=== PATIENT | female | born 1950 | race African-American/Black ===

== ENCOUNTER 2017-06-22 00:51 | Inpatient (IN) ==
[2017-06-22] MEDS ORDERED: ONDANSETRON ODT 4 MG TABLET PO STA (01:13)
[2017-06-22] MEDS ORDERED: SODIUM CHLORIDE 0.9% 1,000 ML IV STA ×2 (01:13→02:55)
[2017-06-22] MEDS ORDERED: ACETAMINOPHEN 500 MG TABLET PO STA (01:14)
[2017-06-22] MEDS ORDERED: ONDANSETRON 4 MG/2 ML VIAL ONE (02:11)
[2017-06-22] MEDS ORDERED: ACETAMINOPHEN 500 MG TABLET ONE (02:11)
[2017-06-22 02:17] LABS: Hematocrit 20.9 VOL% (35.7-47.0); Hemoglobin 7.4 GM/DL (12.0-16.0); Immature Granulocytes % 6.5 %; Immature Granulocytes Absolute 0.12 #; Lymphocytes # 0.2 10*3/uL (1.4-4.0); Lymphocytes % 12.4 % (21.3-54.2); Mean Corpuscular HGB Conc 35.4 GM/DL (32-36); Mean Corpuscular Hemoglobin 31 PG (27-34); Mean Corpuscular Volume 88.6 FL (87-102); Mean Platelet Volume 10.9 FL (9.6-12.0); Monocytes # 0.1 10*3/uL (0.11-0.8); Monocytes % 4.8 % (1.7-12.7); Neutrophils # 1.4 10*3/uL (1.4-7.4); Neutrophils % 76.3 % (38.7-73.9); Platelet Count 123 T/CUMM (130-400); Red Blood Count 2.36 MC/CUMM (3.8-5.5); Red Cell Distribution Width 13.9 % (9.3-17.3); White Blood Count 1.9 T/CUMM (4-12)
[2017-06-22 02:31] LABS: Alanine Aminotransferase 45 U/L (13-56); Albumin 2.4 G/DL (3.4-5.0); Alkaline Phosphatase 524 U/L (45-117); Aspartate Amino Transferase 63 U/L (0-37); Bilirubin,Total < 0.39 MG/DL (0.2-1.0); Blood Urea Nitrogen 16 MG/DL (7-18); Calcium 9.1 MG/DL (8.5-10.1); Glucose 128 MG/DL (74-106); Osmolality,Calculated 279.5 MOS/KG (273-304); Potassium 3.8 MMOL/L (3.5-5.1); Sodium 139 MMOL/L (136-145); Total Protein 7.5 G/DL (6.4-8.3)
[2017-06-22 03:35] LABS: Band Neutrophils 3 % (0-10); Lymphocytes 10 % (20-55); Segmented Neutrophils 83 % (50-85); Total Cells Counted 99
[2017-06-22 03:36] LABS: Hypochromasia 1+; Platelet Estimate Adequate; Target Cells Few
[2017-06-22 03:37] LABS: Microcytosis Slight
[2017-06-22] MEDS ORDERED: PROMETHAZINE INJ 12.5 MG in SODIUM CHLORIDE 0.9% 50 ML IV STA (04:58)
[2017-06-22] MEDS ORDERED: MAGNESIUM HYDROXIDE SUSP 30 ML UDCUP PO PRN (05:03)
[2017-06-22] MEDS ORDERED: BENZTROPINE 2 MG/2 ML AMP IV PRN (05:03)
[2017-06-22] MEDS ORDERED: ALPRAZolam 0.25 MG TABLET PO PRN (05:03)
[2017-06-22] MEDS ORDERED: traMADol 50 MG TABLET PO PRN (05:03)
[2017-06-22] MEDS ORDERED: LACTULOSE 20 GM/30 ML UDCUP PO PRN (05:03)
[2017-06-22] MEDS ORDERED: guaiFENesin 200 MG/10 ML UDCUP PO PRN (05:03)
[2017-06-22] MEDS ORDERED: diphenhydrAMINE CAP 25 MG CAPSULE PO PRN (05:03)
[2017-06-22] MEDS ORDERED: SODIUM CHLORIDE 0.9% 1,000 ML IV PRN ×2 (05:03→22:51)
[2017-06-22] MEDS ORDERED: chlorproMAZINE INJ 50 MG in SODIUM CHLORIDE 0.9% 100 ML IV PRN (05:03)
[2017-06-22] MEDS ORDERED: chlorproMAZINE INJ 25 MG in SODIUM CHLORIDE 0.9% 100 ML IV PRN (05:03)
[2017-06-22] MEDS ORDERED: MYLANTA/LIDO VISC 2:1 300 ML BOTTLE SWISH/SWAL PRN (05:03)
[2017-06-22] MEDS ORDERED: chlorproMAZINE 25 MG TABLET PO PRN (05:03)
[2017-06-22] MEDS ORDERED: LOPERAMIDE 2 MG CAPSULE PO PRN ×2 (05:03)
[2017-06-22] MEDS ORDERED: MYLANTA/LIDO VISC 2:1 300 ML BOTTLE SWISH/SPIT PRN (05:03)
[2017-06-22] MEDS ORDERED: ACETAMINOPHEN 325 MG TABLET PO PRN (05:03)
[2017-06-22] MEDS ORDERED: PROMETHAZINE 25 MG/1 ML VIAL ONE (05:12)
[2017-06-22] MEDS ORDERED: MORPHINE 2 MG/1 ML SYRINGE IV STA (05:50)
[2017-06-22] MEDS ORDERED: MORPHINE 10 MG/1 ML VIAL ONE (05:51)
[2017-06-22] MEDS ORDERED: ZALEPLON 5 MG CAPSULE PO PRN (08:29)
[2017-06-22] MEDS ORDERED: PANTOPRAZOLE 40 MG TABLET PO SCH (09:00)
[2017-06-22] MEDS ORDERED: LINACLOTIDE 145 MCG CAPSULE PO SCH (09:00)
[2017-06-22] MEDS ORDERED: LOSARTAN 50 MG TABLET PO SCH (09:00)
[2017-06-22 09:19] LABS: Basophils % 0.2 % (0.0-0.8); Hematocrit 20.2 VOL% (35.7-47.0); Hemoglobin 7.1 GM/DL (12.0-16.0); Immature Granulocytes % 1.2 %; Immature Granulocytes Absolute 0.06 #; Lymphocytes # 0.4 10*3/uL (1.4-4.0); Lymphocytes % 8.3 % (21.3-54.2); Mean Corpuscular HGB Conc 35.1 GM/DL (32-36); Mean Corpuscular Hemoglobin 31 PG (27-34); Mean Platelet Volume 10.5 FL (9.6-12.0); Monocytes # 0.4 10*3/uL (0.11-0.8); Monocytes % 7.1 % (1.7-12.7); Neutrophils # 4.2 10*3/uL (1.4-7.4); Neutrophils % 83.2 % (38.7-73.9); Red Blood Count 2.27 MC/CUMM (3.8-5.5); Red Cell Distribution Width 13.9 % (9.3-17.3)
[2017-06-22 09:26] LABS: Platelet Count 94 T/CUMM (130-400); White Blood Count 5.1 T/CUMM (4-12)
[2017-06-22] MEDS: oxyCODONE/ACETAMINOPHEN 5-325 MG TABLET PO SCH ×4 (09:48→20:08)
[2017-06-22] MEDS: SODIUM CHLORIDE 0.9% 1,000 ML IV SCH ×2 (09:48→20:16)
[2017-06-22] MEDS: LACTULOSE 20 GM/30 ML UDCUP PO SCH ×2 (09:48→13:19)
[2017-06-22] MEDS: MEGESTROL 40 MG TABLET PO SCH ×4 (09:49→20:08)
[2017-06-22 09:52] LABS: Band Neutrophils 18 % (0-10); Lymphocytes 9 % (20-55); Segmented Neutrophils 69 % (50-85); Total Cells Counted 100
[2017-06-22 09:53] LABS: Giant Platelets Few; Hypochromasia 1+; Microcytosis Slight; Ovalocytes Slight; Platelet Estimate Decreased
[2017-06-22 09:54] LABS: Alanine Aminotransferase 52 U/L (13-56); Albumin 2.1 G/DL (3.4-5.0); Alkaline Phosphatase 418 U/L (45-117); Aspartate Amino Transferase 74 U/L (0-37); Bilirubin,Total < 0.39 MG/DL (0.2-1.0); Blood Urea Nitrogen 19 MG/DL (7-18); Calcium 8.6 MG/DL (8.5-10.1); Glucose 138 MG/DL (74-106); Osmolality,Calculated 284.3 MOS/KG (273-304); Potassium 3.7 MMOL/L (3.5-5.1); Sodium 141 MMOL/L (136-145); Total Protein 6.6 G/DL (6.4-8.3)
[2017-06-22] MEDS: ONDANSETRON 4 MG/2 ML VIAL IV PRN ×2 (12:11→18:01)
[2017-06-22] MEDS: PROMETHAZINE INJ 25 MG in SODIUM CHLORIDE 0.9% 50 ML IV PRN (13:33)
[2017-06-22] MEDS: LEVOFLOXACIN INJ 500 MG in PREMIX 1 EACH IV SCH (17:26)
[2017-06-22] MEDS ORDERED: CITALOPRAM 40 MG TABLET PO SCH (21:00)
[2017-06-22] MEDS ORDERED: PANTOPRAZOLE 40 MG VIAL IV ONE (22:26)
[2017-06-22 23:24] LABS: Basophils % 0.5 % (0.0-0.8); Hematocrit 28.7 VOL% (35.7-47.0); Immature Granulocytes % 0.5 %; Immature Granulocytes Absolute 0.02 #; Lymphocytes # 0.5 10*3/uL (1.4-4.0); Lymphocytes % 11.4 % (21.3-54.2); Mean Corpuscular HGB Conc 34.1 GM/DL (32-36); Mean Corpuscular Hemoglobin 30 PG (27-34); Mean Corpuscular Volume 88.3 FL (87-102); Mean Platelet Volume 10.6 FL (9.6-12.0); Monocytes # 0.4 10*3/uL (0.11-0.8); Monocytes % 10.2 % (1.7-12.7); Neutrophils # 3.2 10*3/uL (1.4-7.4); Neutrophils % 77.4 % (38.7-73.9); Platelet Count 101 T/CUMM (130-400); Red Blood Count 3.25 MC/CUMM (3.8-5.5); White Blood Count 4.1 T/CUMM (4-12)
[2017-06-22 23:27] LABS: Hemoglobin 9.8 GM/DL (12.0-16.0)
[2017-06-23 00:27] LABS: Partial Thromboplastin Time 29.1 SECS (0-40)
[2017-06-23] MEDS: oxyCODONE/ACETAMINOPHEN 5-325 MG TABLET PO SCH ×7 (01:31→22:06)
[2017-06-23 02:53] LABS: Anisocytosis 1+; Band Neutrophils 61 % (0-10); Lymphocytes 10 % (20-55); Poikilocytosis 1+; Segmented Neutrophils 24 % (50-85); Target Cells 1+; Total Cells Counted 100
[2017-06-23] MEDS: SODIUM CHLORIDE 0.9% 1,000 ML IV SCH (04:13)
[2017-06-23] MEDS: PROMETHAZINE INJ 25 MG in SODIUM CHLORIDE 0.9% 50 ML IV PRN (04:13)
[2017-06-23 05:30] LABS: Basophils % 0.5 % (0.0-0.8); Hematocrit 29.1 VOL% (35.7-47.0); Hemoglobin 9.8 GM/DL (12.0-16.0); Immature Granulocytes % 0.5 %; Immature Granulocytes Absolute 0.02 #; Lymphocytes # 0.5 10*3/uL (1.4-4.0); Lymphocytes % 11.5 % (21.3-54.2); Mean Corpuscular HGB Conc 33.7 GM/DL (32-36); Mean Corpuscular Hemoglobin 30 PG (27-34); Mean Corpuscular Volume 88.2 FL (87-102); Mean Platelet Volume 10.7 FL (9.6-12.0); Monocytes # 0.5 10*3/uL (0.11-0.8); Neutrophils % 75.5 % (38.7-73.9); Platelet Count 95 T/CUMM (130-400); Red Cell Distribution Width 14.1 % (9.3-17.3); White Blood Count 3.9 T/CUMM (4-12)
[2017-06-23 06:00] LABS: Albumin 2.2 G/DL (3.4-5.0); Bilirubin,Total 0.9 MG/DL (0.2-1.0); Potassium 3.5 MMOL/L (3.5-5.1); Total Protein 6.9 G/DL (6.4-8.3)
[2017-06-23 06:10] LABS: Band Neutrophils 13 % (0-10); Hypochromasia 1+; Lymphocytes 9 % (20-55); Platelet Estimate Decreased; Segmented Neutrophils 70 % (50-85); Total Cells Counted 100
[2017-06-23 06:11] LABS: Giant Platelets Few; Microcytosis Slight
[2017-06-23] MEDS: MORPHINE 2 MG/1 ML SYRINGE IV PRN ×4 (09:37→21:48)
[2017-06-23] MEDS: SODIUM CHLOR 0.45% KCL 20 MEQ 20 MEQ/1,000 ML BAG IV SCH ×2 (09:42→21:42)
[2017-06-23] MEDS: LEVOFLOXACIN INJ 500 MG in PREMIX 1 EACH IV SCH (16:58)
[2017-06-23] MEDS: PHENOL 1.4% THROAT SPRAY 177 ML BOTTLE PO PRN (21:49)
[2017-06-24] MEDS: oxyCODONE/ACETAMINOPHEN 5-325 MG TABLET PO SCH ×6 (01:45→20:42)
[2017-06-24] MEDS: MORPHINE 2 MG/1 ML SYRINGE IV PRN ×5 (04:00→21:50)
[2017-06-24] MEDS: SODIUM CHLOR 0.45% KCL 20 MEQ 20 MEQ/1,000 ML BAG IV SCH ×2 (04:01→16:23)
[2017-06-24 05:52] LABS: Basophils % 0.4 % (0.0-0.8); Hematocrit 24.1 VOL% (35.7-47.0); Hemoglobin 8.2 GM/DL (12.0-16.0); Immature Granulocytes % 0.4 %; Immature Granulocytes Absolute 0.02 #; Lymphocytes # 0.6 10*3/uL (1.4-4.0); Lymphocytes % 12.6 % (21.3-54.2); Mean Corpuscular Hemoglobin 31 PG (27-34); Mean Corpuscular Volume 89.6 FL (87-102); Mean Platelet Volume 11.4 FL (9.6-12.0); Monocytes # 0.5 10*3/uL (0.11-0.8); Monocytes % 10.9 % (1.7-12.7); Neutrophils # 3.6 10*3/uL (1.4-7.4); Neutrophils % 75.7 % (38.7-73.9); Red Blood Count 2.69 MC/CUMM (3.8-5.5); Red Cell Distribution Width 14.4 % (9.3-17.3); White Blood Count 4.7 T/CUMM (4-12)
[2017-06-24 06:01] LABS: Platelet Count 77 T/CUMM (130-400)
[2017-06-24 06:34] LABS: Albumin 1.9 G/DL (3.4-5.0); Bilirubin,Total 0.9 MG/DL (0.2-1.0); Calcium 7.8 MG/DL (8.5-10.1); Potassium 4.2 MMOL/L (3.5-5.1); Total Protein 6.2 G/DL (6.4-8.3)
[2017-06-24] MEDS: PANTOPRAZOLE 40 MG VIAL IV SCH (09:02)
[2017-06-24] MEDS: PHENOL 1.4% THROAT SPRAY 177 ML BOTTLE PO PRN ×2 (09:05→11:43)
[2017-06-24 10:10] LABS: Band Neutrophils 4 % (0-10); Lymphocytes 10 % (20-55); Segmented Neutrophils 79 % (50-85); Total Cells Counted 100
[2017-06-24 10:11] LABS: Hypochromasia Slight; Microcytosis Slight; Platelet Estimate Decreased; Target Cells Slight
[2017-06-24] MEDS: cefTRIAXone 1,000 MG in SYRINGE 1 EACH IV SCH (16:50)
[2017-06-25] MEDS: oxyCODONE/ACETAMINOPHEN 5-325 MG TABLET PO SCH ×6 (01:11→20:56)
[2017-06-25] MEDS: SODIUM CHLOR 0.45% KCL 20 MEQ 20 MEQ/1,000 ML BAG IV SCH ×3 (01:51→20:48)
[2017-06-25] MEDS: MORPHINE 2 MG/1 ML SYRINGE IV PRN ×5 (04:52→20:52)
[2017-06-25 06:56] LABS: Basophils % 0.6 % (0.0-0.8); Hematocrit 23.5 VOL% (35.7-47.0); Immature Granulocytes % 1.7 %; Immature Granulocytes Absolute 0.06 #; Lymphocytes # 0.7 10*3/uL (1.4-4.0); Lymphocytes % 20.6 % (21.3-54.2); Mean Corpuscular Hemoglobin 31 PG (27-34); Monocytes # 0.5 10*3/uL (0.11-0.8); Monocytes % 13.8 % (1.7-12.7); Neutrophils # 2.2 10*3/uL (1.4-7.4); Neutrophils % 63.3 % (38.7-73.9); Platelet Count 66 T/CUMM (130-400); Red Blood Count 2.61 MC/CUMM (3.8-5.5); Red Cell Distribution Width 14.3 % (9.3-17.3); White Blood Count 3.5 T/CUMM (4-12)
[2017-06-25 06:57] LABS: Albumin 1.8 G/DL (3.4-5.0); Bilirubin,Total 0.4 MG/DL (0.2-1.0); Calcium 7.9 MG/DL (8.5-10.1); Osmolality,Calculated 277.5 MOS/KG (273-304); Potassium 3.8 MMOL/L (3.5-5.1); Total Protein 5.9 G/DL (6.4-8.3)
[2017-06-25 08:52] LABS: Lymphocytes 16 % (20-55); Metamyelocytes 1 %; Segmented Neutrophils 75 % (50-85); Total Cells Counted 100
[2017-06-25 08:53] LABS: Hypochromasia 1+; Microcytosis 1+; Platelet Estimate Decreased; Target Cells Few
[2017-06-25] MEDS: PANTOPRAZOLE 40 MG VIAL IV SCH (09:11)
[2017-06-25] MEDS: cefTRIAXone 1,000 MG in SYRINGE 1 EACH IV SCH (14:53)
[2017-06-26] MEDS: oxyCODONE/ACETAMINOPHEN 5-325 MG TABLET PO SCH ×6 (00:12→22:45)
[2017-06-26] MEDS: MORPHINE 2 MG/1 ML SYRINGE IV PRN ×3 (03:39→20:36)
[2017-06-26 06:12] LABS: Eosinophils % 0.2 % (0.00-10.9); Hematocrit 24.3 VOL% (35.7-47.0); Hemoglobin 8.6 GM/DL (12.0-16.0); Immature Granulocytes Absolute 0.09 #; Lymphocytes # 0.9 10*3/uL (1.4-4.0); Lymphocytes % 20.1 % (21.3-54.2); Mean Corpuscular HGB Conc 35.4 GM/DL (32-36); Mean Corpuscular Hemoglobin 31 PG (27-34); Mean Corpuscular Volume 86.5 FL (87-102); Monocytes # 0.5 10*3/uL (0.11-0.8); Monocytes % 11.9 % (1.7-12.7); Neutrophils # 2.9 10*3/uL (1.4-7.4); Neutrophils % 65.8 % (38.7-73.9); Red Blood Count 2.81 MC/CUMM (3.8-5.5); Red Cell Distribution Width 13.8 % (9.3-17.3); White Blood Count 4.5 T/CUMM (4-12)
[2017-06-26 06:19] LABS: Platelet Count 65 T/CUMM (130-400)
[2017-06-26 06:35] LABS: Calcium 7.9 MG/DL (8.5-10.1); Potassium 3.7 MMOL/L (3.5-5.1)
[2017-06-26 06:57] LABS: Band Neutrophils 3 % (0-10); Hypochromasia 1+; Lymphocytes 11 % (20-55); Microcytosis 1+; Platelet Estimate Decreased; Segmented Neutrophils 79 % (50-85); Tear Drop Cells Slight; Total Cells Counted 100
[2017-06-26] MEDS: PANTOPRAZOLE 40 MG VIAL IV SCH (09:01)
[2017-06-26] MEDS: cefTRIAXone 1,000 MG in SYRINGE 1 EACH IV SCH (14:17)
[2017-06-26] MEDS: SODIUM CHLOR 0.45% KCL 20 MEQ 20 MEQ/1,000 ML BAG IV SCH (15:30)
[2017-06-27] MEDS: oxyCODONE/ACETAMINOPHEN 5-325 MG TABLET PO SCH ×6 (01:55→21:14)
[2017-06-27] MEDS: SODIUM CHLOR 0.45% KCL 20 MEQ 20 MEQ/1,000 ML BAG IV SCH ×3 (01:55→15:04)
[2017-06-27] MEDS: MORPHINE 2 MG/1 ML SYRINGE IV PRN ×4 (03:38→21:40)
[2017-06-27 05:34] LABS: Basophils % 0.3 % (0.0-0.8); Eosinophils % 0.3 % (0.00-10.9); Hematocrit 26.4 VOL% (35.7-47.0); Hemoglobin 9.2 GM/DL (12.0-16.0); Immature Granulocytes % 1.9 %; Immature Granulocytes Absolute 0.07 #; Lymphocytes # 0.7 10*3/uL (1.4-4.0); Lymphocytes % 19.1 % (21.3-54.2); Mean Corpuscular HGB Conc 34.8 GM/DL (32-36); Mean Corpuscular Hemoglobin 30 PG (27-34); Mean Corpuscular Volume 86.8 FL (87-102); Monocytes # 0.6 10*3/uL (0.11-0.8); Monocytes % 15.2 % (1.7-12.7); Neutrophils # 2.4 10*3/uL (1.4-7.4); Neutrophils % 63.2 % (38.7-73.9); Platelet Count 70 T/CUMM (130-400); Red Blood Count 3.04 MC/CUMM (3.8-5.5); White Blood Count 3.8 T/CUMM (4-12)
[2017-06-27 06:06] LABS: Band Neutrophils 2 % (0-10); Hypochromasia 1+; Lymphocytes 18 % (20-55); Microcytosis 1+; Myelocytes 1 %; Segmented Neutrophils 67 % (50-85); Target Cells Slight; Total Cells Counted 100
[2017-06-27 06:07] LABS: Platelet Estimate Decreased
[2017-06-27] MEDS: ONDANSETRON 4 MG/2 ML VIAL IV PRN (08:20)
[2017-06-27] MEDS: PANTOPRAZOLE 40 MG VIAL IV SCH (08:37)
[2017-06-27] MEDS: PROMETHAZINE INJ 25 MG in SODIUM CHLORIDE 0.9% 50 ML IV PRN (08:56)
[2017-06-27] MEDS: cefTRIAXone 1,000 MG in SYRINGE 1 EACH IV SCH (15:42)
[2017-06-28] MEDS: SODIUM CHLOR 0.45% KCL 20 MEQ 20 MEQ/1,000 ML BAG IV SCH ×2 (02:27→17:08)
[2017-06-28] MEDS: MORPHINE 2 MG/1 ML SYRINGE IV PRN ×3 (04:24→17:56)
[2017-06-28] MEDS: oxyCODONE/ACETAMINOPHEN 5-325 MG TABLET PO SCH ×5 (04:28→22:52)
[2017-06-28 05:21] LABS: Basophils % 0.2 % (0.0-0.8); Eosinophils % 0.2 % (0.00-10.9); Hematocrit 24.8 VOL% (35.7-47.0); Hemoglobin 8.6 GM/DL (12.0-16.0); Immature Granulocytes % 1.4 %; Immature Granulocytes Absolute 0.07 #; Lymphocytes # 0.7 10*3/uL (1.4-4.0); Lymphocytes % 14.7 % (21.3-54.2); Mean Corpuscular HGB Conc 34.7 GM/DL (32-36); Mean Corpuscular Hemoglobin 31 PG (27-34); Mean Corpuscular Volume 89.2 FL (87-102); Mean Platelet Volume 10.8 FL (9.6-12.0); Monocytes # 0.5 10*3/uL (0.11-0.8); Monocytes % 10.8 % (1.7-12.7); Neutrophils # 3.6 10*3/uL (1.4-7.4); Neutrophils % 72.7 % (38.7-73.9); Red Blood Count 2.78 MC/CUMM (3.8-5.5); Red Cell Distribution Width 13.8 % (9.3-17.3); White Blood Count 4.9 T/CUMM (4-12)
[2017-06-28 05:30] LABS: Platelet Count 71 T/CUMM (130-400)
[2017-06-28 05:58] LABS: Band Neutrophils 2 % (0-10); Lymphocytes 18 % (20-55); Metamyelocytes 2 %; Segmented Neutrophils 72 % (50-85); Total Cells Counted 100
[2017-06-28 05:59] LABS: Hypochromasia 1+; Microcytosis 1+; Platelet Estimate Decreased; Target Cells Slight
[2017-06-28] MEDS: ONDANSETRON 4 MG/2 ML VIAL IV PRN (06:00)
[2017-06-28] MEDS ORDERED: cefOXitin 2,000 MG in SYRINGE 1 EACH IV ONE (09:00)
[2017-06-28] MEDS: PANTOPRAZOLE 40 MG VIAL IV SCH (10:20)
[2017-06-28] MEDS ORDERED: cefTRIAXone 1,000 MG VIAL ONE (13:14)
[2017-06-28] MEDS ORDERED: BUPIVACAINE 0.25% 50 ML VIAL ONE (14:50)
[2017-06-28] MEDS ORDERED: EPINEPHrine 1 MG/ML VIAL ONE (14:50)
[2017-06-28 15:06] LABS: Apearance,Urine CLEAR (Clear); Bacteria,Urine Occasional /HPF (Few); Bilirubin,Urine Negative (Negative); Blood, Urine Negative (Negative); Glucose,Urine (UA) Negative (Negative); Ketones,Urine 20 mg/dL (Negative); Mucus,Urine Occasional /LPF (Occasional); Nitrite,Urine Negative (Negative); Protein,Urine Negative; Squamous Epithelial Cell,Urine Occasional /HPF (0-10); Urine Color Yellow (Yellow); Urine Specific Gravity 1.013 (1.001-1.035); Urine Urobilinogen < 2.0 EU/DL (0.2-1.0); WBC,Urine 1 /HPF (0-6)
[2017-06-28] MEDS ORDERED: ONDANSETRON 4 MG/2 ML VIAL IV PRN (15:17)
[2017-06-28] MEDS ORDERED: ONDANSETRON 4 MG/2 ML VIAL ONE ×2 (15:18→15:24)
[2017-06-28] MEDS ORDERED: HYDROmorphone 2 MG/1 ML VIAL ONE ×2 (15:18→15:23)
[2017-06-28] MEDS: HYDROmorphone 2 MG/1 ML VIAL IV PRN ×4 (15:20→15:45)
[2017-06-28] MEDS ORDERED: fentaNYL 100 MCG/2 ML VIAL ONE (15:23)
[2017-06-28] MEDS ORDERED: PROPOFOL 200 MG/20 ML VIAL IV ONE (15:23)
[2017-06-28] MEDS ORDERED: MIDAZOLAM 2 MG/2 ML VIAL ONE (15:24)
[2017-06-28] MEDS ORDERED: NEOSTIGMINE 10 MG/10 ML VIAL ONE (15:24)
[2017-06-28] MEDS ORDERED: GLYCOPYRROLATE 0.4 MG/2 ML VIAL ONE (15:24)
[2017-06-28] MEDS ORDERED: DEXAMETHASONE 10 MG/1 ML VIAL ONE (15:24)
[2017-06-28] MEDS ORDERED: LACTATED RINGERS 1,000 ML IV ONE (15:25)
[2017-06-28] MEDS ORDERED: SUCCINYLCHOLINE 200 MG/10 ML VIAL ONE (15:25)
[2017-06-28] MEDS ORDERED: ROCURONIUM 100 MG/10 ML VIAL IV ONE (15:25)
[2017-06-28] MEDS: DEXTROSE 5% NACL 0.9% 1,000 ML IV SCH (15:40)
[2017-06-28] MEDS: cefTRIAXone 1,000 MG in SYRINGE 1 EACH IV SCH (17:07)
[2017-06-29] MEDS: oxyCODONE/ACETAMINOPHEN 5-325 MG TABLET PO SCH ×6 (01:48→20:43)
[2017-06-29 05:20] LABS: Basophils % 0.4 % (0.0-0.8); Hematocrit 22.3 VOL% (35.7-47.0); Hemoglobin 7.8 GM/DL (12.0-16.0); Immature Granulocytes % 1.4 %; Immature Granulocytes Absolute 0.12 #; Lymphocytes # 0.5 10*3/uL (1.4-4.0); Lymphocytes % 6.2 % (21.3-54.2); Mean Corpuscular Hemoglobin 31 PG (27-34); Mean Corpuscular Volume 87.1 FL (87-102); Mean Platelet Volume 10.5 FL (9.6-12.0); Monocytes # 0.4 10*3/uL (0.11-0.8); Monocytes % 4.4 % (1.7-12.7); Neutrophils # 7.4 10*3/uL (1.4-7.4); Neutrophils % 87.6 % (38.7-73.9); Platelet Count 84 T/CUMM (130-400); Red Blood Count 2.56 MC/CUMM (3.8-5.5); Red Cell Distribution Width 13.9 % (9.3-17.3); White Blood Count 8.5 T/CUMM (4-12)
[2017-06-29 05:53] LABS: Albumin 1.5 G/DL (3.4-5.0); Bilirubin,Total 0.5 MG/DL (0.2-1.0); Calcium 7.8 MG/DL (8.5-10.1); Osmolality,Calculated 281.5 MOS/KG (273-304); Potassium 4.6 MMOL/L (3.5-5.1); Total Protein 5.3 G/DL (6.4-8.3)
[2017-06-29 05:55] LABS: Hypochromasia 1+; Platelet Estimate Decreased
[2017-06-29 05:56] LABS: Burr Cells Slight; Giant Platelets Few; Microcytosis 1+; Ovalocytes Slight
[2017-06-29] MEDS: MORPHINE 2 MG/1 ML SYRINGE IV PRN ×5 (07:00→23:32)
[2017-06-29] MEDS: SODIUM CHLOR 0.45% KCL 20 MEQ 20 MEQ/1,000 ML BAG IV SCH ×2 (07:00→08:35)
[2017-06-29] MEDS ORDERED: SODIUM CHLORIDE 0.9% 1,000 ML IV PRN (08:01)
[2017-06-29] MEDS ORDERED: LACTATED RINGERS 500 ML IV ONE (09:02)
[2017-06-29] MEDS: PANTOPRAZOLE 40 MG VIAL IV SCH (09:38)
[2017-06-29] MEDS: DEXTROSE 5% NACL 0.9% 1,000 ML IV SCH (11:30)
[2017-06-29] MEDS: cefTRIAXone 1,000 MG in SYRINGE 1 EACH IV SCH (16:49)
[2017-06-30] MEDS: oxyCODONE/ACETAMINOPHEN 5-325 MG TABLET PO SCH ×6 (01:34→22:09)
[2017-06-30] MEDS: MORPHINE 2 MG/1 ML SYRINGE IV PRN ×5 (06:41→20:05)
[2017-06-30 07:52] LABS: Basophils % 0.1 % (0.0-0.8); Eosinophils % 0.1 % (0.00-10.9); Hematocrit 28.2 VOL% (35.7-47.0); Immature Granulocytes Absolute 0.08 #; Lymphocytes # 0.5 10*3/uL (1.4-4.0); Lymphocytes % 6.7 % (21.3-54.2); Mean Corpuscular HGB Conc 34.8 GM/DL (32-36); Mean Corpuscular Hemoglobin 30 PG (27-34); Mean Corpuscular Volume 85.5 FL (87-102); Mean Platelet Volume 10.5 FL (9.6-12.0); Monocytes # 0.3 10*3/uL (0.11-0.8); Monocytes % 3.5 % (1.7-12.7); Neutrophils # 6.8 10*3/uL (1.4-7.4); Neutrophils % 88.6 % (38.7-73.9); Red Cell Distribution Width 14.6 % (9.3-17.3); White Blood Count 7.7 T/CUMM (4-12)
[2017-06-30 07:55] LABS: Hemoglobin 9.8 GM/DL (12.0-16.0); Platelet Count 67 T/CUMM (130-400)
[2017-06-30 08:13] LABS: Alanine Aminotransferase 26 U/L (13-56); Albumin 1.6 G/DL (3.4-5.0); Alkaline Phosphatase 159 U/L (45-117); Aspartate Amino Transferase 30 U/L (0-37); Bilirubin,Total < 0.39 MG/DL (0.2-1.0); Blood Urea Nitrogen 23 MG/DL (7-18); Calcium 8.3 MG/DL (8.5-10.1); Glucose 92 MG/DL (74-106); Osmolality,Calculated 286.1 MOS/KG (273-304); Sodium 142 MMOL/L (136-145); Total Protein 5.6 G/DL (6.4-8.3)
[2017-06-30 08:16] LABS: Band Neutrophils 1 % (0-10); Lymphocytes 4 % (20-55); Segmented Neutrophils 91 % (50-85); Total Cells Counted 100
[2017-06-30 08:17] LABS: Burr Cells Slight; Hypochromasia 1+; Microcytosis 1+; Platelet Estimate Decreased; Target Cells Slight
[2017-06-30] MEDS: PANTOPRAZOLE 40 MG VIAL IV SCH (09:23)
[2017-06-30] MEDS: cefTRIAXone 1,000 MG in SYRINGE 1 EACH IV SCH (14:48)
[2017-06-30] MEDS: DEXTROSE 5% NACL 0.9% 1,000 ML IV SCH ×2 (18:30→22:10)
[2017-06-30] MEDS: TEMAZEPAM 7.5 MG CAPSULE PO PRN (21:18)
[2017-07-01] MEDS: oxyCODONE/ACETAMINOPHEN 5-325 MG TABLET PO SCH ×6 (01:05→21:40)
[2017-07-01] MEDS: MORPHINE 2 MG/1 ML SYRINGE IV PRN ×7 (03:02→21:41)
[2017-07-01] MEDS: PANTOPRAZOLE 40 MG VIAL IV SCH (09:29)
[2017-07-01] MEDS: DEXTROSE 5% NACL 0.9% 1,000 ML IV SCH (12:34)
[2017-07-01] MEDS: cefTRIAXone 1,000 MG in SYRINGE 1 EACH IV SCH (14:03)
[2017-07-01] MEDS: TEMAZEPAM 7.5 MG CAPSULE PO PRN (21:45)
[2017-07-02] MEDS: oxyCODONE/ACETAMINOPHEN 5-325 MG TABLET PO SCH ×6 (02:25→21:11)
[2017-07-02] MEDS: MORPHINE 2 MG/1 ML SYRINGE IV PRN ×4 (04:39→18:39)
[2017-07-02 05:25] LABS: Basophils % 0.3 % (0.0-0.8); Eosinophils % 0.3 % (0.00-10.9); Hematocrit 29.5 VOL% (35.7-47.0); Hemoglobin 10.1 GM/DL (12.0-16.0); Immature Granulocytes Absolute 0.06 #; Lymphocytes # 0.7 10*3/uL (1.4-4.0); Lymphocytes % 10.9 % (21.3-54.2); Mean Corpuscular HGB Conc 34.2 GM/DL (32-36); Mean Corpuscular Hemoglobin 30 PG (27-34); Mean Corpuscular Volume 87.3 FL (87-102); Mean Platelet Volume 10.9 FL (9.6-12.0); Monocytes # 0.3 10*3/uL (0.11-0.8); Neutrophils # 4.9 10*3/uL (1.4-7.4); Neutrophils % 82.5 % (38.7-73.9); Platelet Count 66 T/CUMM (130-400); Red Blood Count 3.38 MC/CUMM (3.8-5.5); Red Cell Distribution Width 14.5 % (9.3-17.3)
[2017-07-02 06:08] LABS: Albumin 1.4 G/DL (3.4-5.0); Bilirubin,Total 0.9 MG/DL (0.2-1.0); Calcium 8.2 MG/DL (8.5-10.1); Osmolality,Calculated 276.4 MOS/KG (273-304); Potassium 3.1 MMOL/L (3.5-5.1); Total Protein 5.6 G/DL (6.4-8.3)
[2017-07-02 06:28] LABS: Band Neutrophils 1 % (0-10); Eosinophils 1 % (0-10); Giant Platelets Few; Hypochromasia 1+; Lymphocytes 5 % (20-55); Microcytosis Slight; Ovalocytes Slight; Platelet Estimate Decreased; Segmented Neutrophils 87 % (50-85); Total Cells Counted 100
[2017-07-02] MEDS ORDERED: LIDOCAINE 2%/EPI 20 ML VIAL ONE (07:09)
[2017-07-02] MEDS ORDERED: MIDAZOLAM 2 MG/2 ML VIAL ONE (08:06)
[2017-07-02] MEDS ORDERED: fentaNYL 100 MCG/2 ML VIAL ONE (08:06)
[2017-07-02] MEDS: PANTOPRAZOLE 40 MG VIAL IV SCH (09:40)
[2017-07-02] MEDS: cefTRIAXone 1,000 MG in SYRINGE 1 EACH IV SCH (14:21)
[2017-07-02] MEDS: DEXTROSE 5% NACL 0.9% 1,000 ML IV SCH (15:08)
[2017-07-02] MEDS ORDERED: MAGNESIUM OXIDE 400 MG TABLET PO SCH (21:00)
[2017-07-02] MEDS: TEMAZEPAM 7.5 MG CAPSULE PO PRN (21:11)
[2017-07-02] MEDS: PROMETHAZINE INJ 25 MG in SODIUM CHLORIDE 0.9% 50 ML IV PRN (21:20)
[2017-07-03] MEDS: oxyCODONE/ACETAMINOPHEN 5-325 MG TABLET PO SCH ×6 (01:28→21:45)
[2017-07-03] MEDS: MORPHINE 2 MG/1 ML SYRINGE IV PRN ×6 (01:35→21:37)
[2017-07-03] MEDS: DEXTROSE 5% NACL 0.9% 1,000 ML IV SCH (06:04)
[2017-07-03 06:11] LABS: Albumin 1.5 G/DL (3.4-5.0); Bilirubin,Total 0.7 MG/DL (0.2-1.0); Calcium 8.2 MG/DL (8.5-10.1); Osmolality,Calculated 281.3 MOS/KG (273-304); Potassium 3.1 MMOL/L (3.5-5.1); Total Protein 5.8 G/DL (6.4-8.3)
[2017-07-03] MEDS ORDERED: MAGNESIUM SULF RIDER 2 GM in PREMIX 1 EACH IV ONE (08:06)
[2017-07-03] MEDS ORDERED: POTASSIUM CHLORIDE 20 MEQ TABLET PO SCH (09:00)
[2017-07-03] MEDS: DEXT 5% NACL 0.45% KCL 20 MEQ 20 MEQ/1,000 ML BAG IV SCH (09:49)
[2017-07-03] MEDS: PANTOPRAZOLE 40 MG VIAL IV SCH (09:52)
[2017-07-03] MEDS: ONDANSETRON 4 MG/2 ML VIAL IV PRN ×2 (10:05→19:11)
[2017-07-03] MEDS: cefTRIAXone 1,000 MG in SYRINGE 1 EACH IV SCH (14:35)
[2017-07-04] MEDS: DEXT 5% NACL 0.45% KCL 20 MEQ 20 MEQ/1,000 ML BAG IV SCH ×2 (00:35→13:24)
[2017-07-04] MEDS: oxyCODONE/ACETAMINOPHEN 5-325 MG TABLET PO SCH ×6 (00:44→21:38)
[2017-07-04] MEDS: MORPHINE 2 MG/1 ML SYRINGE IV PRN ×6 (02:45→21:33)
[2017-07-04 05:18] LABS: Basophils % 0.5 % (0.0-0.8); Eosinophils % 0.5 % (0.00-10.9); Hematocrit 27.4 VOL% (35.7-47.0); Hemoglobin 9.4 GM/DL (12.0-16.0); Immature Granulocytes % 0.8 %; Immature Granulocytes Absolute 0.03 #; Lymphocytes # 0.6 10*3/uL (1.4-4.0); Lymphocytes % 14.9 % (21.3-54.2); Mean Corpuscular HGB Conc 34.3 GM/DL (32-36); Mean Corpuscular Hemoglobin 30 PG (27-34); Mean Corpuscular Volume 86.2 FL (87-102); Mean Platelet Volume 10.6 FL (9.6-12.0); Monocytes # 0.3 10*3/uL (0.11-0.8); Monocytes % 7.4 % (1.7-12.7); Neutrophils # 2.9 10*3/uL (1.4-7.4); Neutrophils % 75.9 % (38.7-73.9); Platelet Count 90 T/CUMM (130-400); Red Blood Count 3.18 MC/CUMM (3.8-5.5); Red Cell Distribution Width 14.6 % (9.3-17.3); White Blood Count 3.8 T/CUMM (4-12)
[2017-07-04 05:41] LABS: Calcium 7.7 MG/DL (8.5-10.1); Osmolality,Calculated 282.4 MOS/KG (273-304); Potassium 3.4 MMOL/L (3.5-5.1)
[2017-07-04 05:43] LABS: Band Neutrophils 5 % (0-10); Eosinophils 1 % (0-10); Lymphocytes 12 % (20-55); Platelet Estimate Decreased; Segmented Neutrophils 75 % (50-85); Total Cells Counted 100
[2017-07-04 05:44] LABS: Giant Platelets Few; Hypochromasia 1+; Microcytosis Slight
[2017-07-04] MEDS: PANTOPRAZOLE 40 MG VIAL IV SCH (10:39)
[2017-07-04] MEDS: fentaNYL 50 MCG/HR PATCH TRANSDERM SCH (10:42)
[2017-07-04] MEDS: ZINC OXIDE PASTE 113 GM TUBE TOP SCH ×2 (14:35→21:38)
[2017-07-04] MEDS: cefTRIAXone 1,000 MG in SYRINGE 1 EACH IV SCH (15:27)
[2017-07-04] MEDS: TEMAZEPAM 7.5 MG CAPSULE PO PRN (21:41)
[2017-07-05] MEDS: oxyCODONE/ACETAMINOPHEN 5-325 MG TABLET PO SCH ×6 (01:02→22:32)
[2017-07-05] MEDS: MORPHINE 2 MG/1 ML SYRINGE IV PRN ×6 (01:02→22:38)
[2017-07-05] MEDS: DEXT 5% NACL 0.45% KCL 20 MEQ 20 MEQ/1,000 ML BAG IV SCH ×3 (02:48→16:26)
[2017-07-05 06:17] LABS: Calcium 7.7 MG/DL (8.5-10.1); Osmolality,Calculated 284.1 MOS/KG (273-304); Potassium 3.5 MMOL/L (3.5-5.1)
[2017-07-05 06:22] LABS: Basophils % 0.6 % (0.0-0.8); Eosinophils % 0.3 % (0.00-10.9); Hematocrit 27.1 VOL% (35.7-47.0); Hemoglobin 9.3 GM/DL (12.0-16.0); Immature Granulocytes % 1.7 %; Immature Granulocytes Absolute 0.06 #; Lymphocytes # 0.7 10*3/uL (1.4-4.0); Lymphocytes % 18.6 % (21.3-54.2); Mean Corpuscular HGB Conc 34.3 GM/DL (32-36); Mean Corpuscular Hemoglobin 30 PG (27-34); Mean Corpuscular Volume 87.4 FL (87-102); Monocytes # 0.3 10*3/uL (0.11-0.8); Monocytes % 8.3 % (1.7-12.7); Neutrophils # 2.5 10*3/uL (1.4-7.4); Neutrophils % 70.5 % (38.7-73.9); Platelet Count 84 T/CUMM (130-400); Red Cell Distribution Width 14.5 % (9.3-17.3); White Blood Count 3.5 T/CUMM (4-12)
[2017-07-05 07:00] LABS: Band Neutrophils 11 % (0-10); Eosinophils 1 % (0-10); Lymphocytes 22 % (20-55); Platelet Estimate Decreased; Segmented Neutrophils 63 % (50-85); Total Cells Counted 100
[2017-07-05] MEDS: PANTOPRAZOLE 40 MG VIAL IV SCH (08:39)
[2017-07-05] MEDS: ZINC OXIDE PASTE 113 GM TUBE TOP SCH ×2 (11:36→22:51)
[2017-07-05] MEDS: cefTRIAXone 1,000 MG in SYRINGE 1 EACH IV SCH (14:20)
[2017-07-05] MEDS: TEMAZEPAM 7.5 MG CAPSULE PO PRN (22:40)
[2017-07-06] MEDS: oxyCODONE/ACETAMINOPHEN 5-325 MG TABLET PO SCH ×2 (01:34→05:13)
[2017-07-06] MEDS: MORPHINE 2 MG/1 ML SYRINGE IV PRN ×4 (03:25→15:30)
[2017-07-06 05:40] LABS: Basophils % 0.5 % (0.0-0.8); Eosinophils % 0.5 % (0.00-10.9); Hematocrit 27.9 VOL% (35.7-47.0); Hemoglobin 9.2 GM/DL (12.0-16.0); Immature Granulocytes % 0.8 %; Immature Granulocytes Absolute 0.03 #; Lymphocytes # 0.6 10*3/uL (1.4-4.0); Lymphocytes % 15.2 % (21.3-54.2); Mean Corpuscular Hemoglobin 29 PG (27-34); Mean Corpuscular Volume 88.6 FL (87-102); Mean Platelet Volume 10.9 FL (9.6-12.0); Monocytes # 0.4 10*3/uL (0.11-0.8); Neutrophils # 2.9 10*3/uL (1.4-7.4); Platelet Count 82 T/CUMM (130-400); Red Blood Count 3.15 MC/CUMM (3.8-5.5); Red Cell Distribution Width 14.5 % (9.3-17.3); White Blood Count 3.9 T/CUMM (4-12)
[2017-07-06 06:11] LABS: Band Neutrophils 4 % (0-10); Giant Platelets Few; Hypochromasia 1+; Lymphocytes 11 % (20-55); Microcytosis Slight; Ovalocytes Slight; Platelet Estimate Decreased; Segmented Neutrophils 79 % (50-85); Total Cells Counted 100
[2017-07-06] MEDS ORDERED: traMADol 50 MG TABLET PO PRN (07:47)
[2017-07-06] MEDS ORDERED: ALPRAZolam 0.25 MG TABLET PO PRN (07:48)
[2017-07-06] MEDS: PANTOPRAZOLE 40 MG VIAL IV SCH (08:17)
[2017-07-06] MEDS: DEXT 5% NACL 0.45% KCL 20 MEQ 20 MEQ/1,000 ML BAG IV SCH ×3 (08:18→22:08)
[2017-07-06] MEDS: oxyCODONE/ACETAMINOPHEN 5-325 MG TABLET PO PRN ×3 (08:18→22:03)
[2017-07-06] MEDS: ONDANSETRON 4 MG/2 ML VIAL IV PRN (08:18)
[2017-07-06] MEDS: ALUMINUM/MAGNES/SIMETH MAX STR 30 ML UDCUP PO PRN (08:59)
[2017-07-06] MEDS: ZINC OXIDE PASTE 113 GM TUBE TOP SCH ×2 (11:26→22:53)
[2017-07-06] MEDS: cefTRIAXone 1,000 MG in SYRINGE 1 EACH IV SCH (13:08)
[2017-07-06] MEDS: TEMAZEPAM 7.5 MG CAPSULE PO PRN (22:11)
[2017-07-07 04:46] LABS: Basophils % 0.3 % (0.0-0.8); Eosinophils % 0.3 % (0.00-10.9); Hematocrit 26.5 VOL% (35.7-47.0); Hemoglobin 8.8 GM/DL (12.0-16.0); Immature Granulocytes % 1.5 %; Immature Granulocytes Absolute 0.05 #; Lymphocytes # 0.7 10*3/uL (1.4-4.0); Lymphocytes % 21.8 % (21.3-54.2); Mean Corpuscular HGB Conc 33.2 GM/DL (32-36); Mean Corpuscular Hemoglobin 29 PG (27-34); Mean Corpuscular Volume 88.3 FL (87-102); Mean Platelet Volume 10.9 FL (9.6-12.0); Monocytes # 0.4 10*3/uL (0.11-0.8); Monocytes % 12.8 % (1.7-12.7); Neutrophils # 2.1 10*3/uL (1.4-7.4); Neutrophils % 63.3 % (38.7-73.9); Platelet Count 76 T/CUMM (130-400); Red Cell Distribution Width 14.5 % (9.3-17.3); White Blood Count 3.4 T/CUMM (4-12)
[2017-07-07 05:20] LABS: Band Neutrophils 8 % (0-10); Hypochromasia 1+; Lymphocytes 11 % (20-55); Microcytosis Slight; Platelet Estimate Decreased; Segmented Neutrophils 76 % (50-85); Total Cells Counted 100
[2017-07-07] MEDS: oxyCODONE/ACETAMINOPHEN 5-325 MG TABLET PO PRN ×2 (05:26→12:06)
[2017-07-07] MEDS: MORPHINE 2 MG/1 ML SYRINGE IV PRN ×3 (09:02→18:29)
[2017-07-07] MEDS: PANTOPRAZOLE 40 MG VIAL IV SCH (09:06)
[2017-07-07] MEDS: fentaNYL 50 MCG/HR PATCH TRANSDERM SCH (09:10)
[2017-07-07] MEDS ORDERED: MINERAL OIL ENEMA 133 ML BOTTLE RECTAL ONE (09:17)
[2017-07-07] MEDS: ZINC OXIDE PASTE 113 GM TUBE TOP SCH ×2 (11:45→22:08)
[2017-07-07] MEDS: DEXT 5% NACL 0.45% KCL 20 MEQ 20 MEQ/1,000 ML BAG IV SCH (12:08)
[2017-07-07] MEDS: ONDANSETRON 4 MG/2 ML VIAL IV PRN (12:42)
[2017-07-07] MEDS: ALUMINUM/MAGNES/SIMETH MAX STR 30 ML UDCUP PO PRN (12:42)
[2017-07-08] MEDS: DEXT 5% NACL 0.45% KCL 20 MEQ 20 MEQ/1,000 ML BAG IV SCH ×3 (01:14→14:31)
[2017-07-08] MEDS: MORPHINE 2 MG/1 ML SYRINGE IV PRN ×5 (01:18→19:41)
[2017-07-08 04:47] LABS: Basophils % 0.2 % (0.0-0.8); Eosinophils % 0.5 % (0.00-10.9); Hematocrit 27.6 VOL% (35.7-47.0); Hemoglobin 9.1 GM/DL (12.0-16.0); Immature Granulocytes % 2.2 %; Immature Granulocytes Absolute 0.09 #; Lymphocytes # 0.9 10*3/uL (1.4-4.0); Lymphocytes % 21.9 % (21.3-54.2); Mean Corpuscular Hemoglobin 29 PG (27-34); Mean Corpuscular Volume 88.5 FL (87-102); Mean Platelet Volume 11.1 FL (9.6-12.0); Monocytes # 0.5 10*3/uL (0.11-0.8); Monocytes % 11.1 % (1.7-12.7); Neutrophils # 2.7 10*3/uL (1.4-7.4); Neutrophils % 64.1 % (38.7-73.9); Red Blood Count 3.12 MC/CUMM (3.8-5.5); Red Cell Distribution Width 14.3 % (9.3-17.3); White Blood Count 4.2 T/CUMM (4-12)
[2017-07-08 04:50] LABS: Platelet Count 64 T/CUMM (130-400)
[2017-07-08 05:12] LABS: Calcium 7.4 MG/DL (8.5-10.1); Osmolality,Calculated 276.5 MOS/KG (273-304); Potassium 4.2 MMOL/L (3.5-5.1)
[2017-07-08] MEDS: oxyCODONE/ACETAMINOPHEN 5-325 MG TABLET PO PRN (05:53)
[2017-07-08 05:55] LABS: Eosinophils 1 % (0-10); Hypochromasia 1+; Lymphocytes 16 % (20-55); Microcytosis 1+; Myelocytes 1 %; Platelet Estimate Decreased; Promyelocytes 1 %; Segmented Neutrophils 75 % (50-85); Total Cells Counted 100
[2017-07-08] MEDS: PANTOPRAZOLE 40 MG VIAL IV SCH (09:13)
[2017-07-08] MEDS: ZINC OXIDE PASTE 113 GM TUBE TOP SCH ×2 (09:20→20:00)
[2017-07-08] MEDS: fentaNYL 75 MCG/HR PATCH TRANSDERM SCH (12:42)
[2017-07-08] MEDS: TEMAZEPAM 7.5 MG CAPSULE PO PRN (19:58)
[2017-07-09] MEDS: MORPHINE 2 MG/1 ML SYRINGE IV PRN ×3 (00:41→09:41)
[2017-07-09] MEDS: DEXT 5% NACL 0.45% KCL 20 MEQ 20 MEQ/1,000 ML BAG IV SCH ×2 (04:02→17:25)
[2017-07-09 05:47] LABS: Basophils % 0.6 % (0.0-0.8); Eosinophils % 0.4 % (0.00-10.9); Hematocrit 27.4 VOL% (35.7-47.0); Hemoglobin 9.5 GM/DL (12.0-16.0); Immature Granulocytes % 3.4 %; Immature Granulocytes Absolute 0.17 #; Lymphocytes % 19.9 % (21.3-54.2); Mean Corpuscular HGB Conc 34.7 GM/DL (32-36); Mean Corpuscular Hemoglobin 30 PG (27-34); Mean Corpuscular Volume 85.9 FL (87-102); Mean Platelet Volume 11.8 FL (9.6-12.0); Monocytes # 0.5 10*3/uL (0.11-0.8); Monocytes % 10.6 % (1.7-12.7); Neutrophils # 3.2 10*3/uL (1.4-7.4); Neutrophils % 65.1 % (38.7-73.9); Platelet Count 70 T/CUMM (130-400); Red Blood Count 3.19 MC/CUMM (3.8-5.5); Red Cell Distribution Width 14.5 % (9.3-17.3)
[2017-07-09 06:14] LABS: Calcium 7.7 MG/DL (8.5-10.1); Osmolality,Calculated 274.5 MOS/KG (273-304); Potassium 4.3 MMOL/L (3.5-5.1)
[2017-07-09 06:17] LABS: Band Neutrophils 21 % (0-10); Lymphocytes 10 % (20-55); Segmented Neutrophils 66 % (50-85); Total Cells Counted 100
[2017-07-09 06:20] LABS: Anisocytosis 1+; Target Cells 1+
[2017-07-09] MEDS: oxyCODONE/ACETAMINOPHEN 5-325 MG TABLET PO PRN (06:43)
[2017-07-09] MEDS: ZINC OXIDE PASTE 113 GM TUBE TOP SCH ×2 (08:45→22:20)
[2017-07-09] MEDS: PANTOPRAZOLE 40 MG VIAL IV SCH (09:45)
[2017-07-09] MEDS: MORPHINE 10 MG/1 ML VIAL IV PRN ×3 (15:38→22:14)
[2017-07-10] MEDS: MORPHINE 10 MG/1 ML VIAL IV PRN ×6 (02:40→22:03)
[2017-07-10 05:07] LABS: Basophils % 0.4 % (0.0-0.8); Eosinophils % 0.2 % (0.00-10.9); Hematocrit 27.8 VOL% (35.7-47.0); Hemoglobin 9.2 GM/DL (12.0-16.0); Immature Granulocytes % 3.4 %; Immature Granulocytes Absolute 0.19 #; Lymphocytes # 0.9 10*3/uL (1.4-4.0); Lymphocytes % 16.2 % (21.3-54.2); Mean Corpuscular HGB Conc 33.1 GM/DL (32-36); Mean Corpuscular Hemoglobin 29 PG (27-34); Mean Corpuscular Volume 88.3 FL (87-102); Mean Platelet Volume 10.9 FL (9.6-12.0); Monocytes # 0.4 10*3/uL (0.11-0.8); Monocytes % 7.4 % (1.7-12.7); Neutrophils % 72.4 % (38.7-73.9); Red Blood Count 3.15 MC/CUMM (3.8-5.5); Red Cell Distribution Width 14.5 % (9.3-17.3); White Blood Count 5.5 T/CUMM (4-12)
[2017-07-10 05:21] LABS: Platelet Count 69 T/CUMM (130-400)
[2017-07-10 05:27] LABS: Calcium 7.9 MG/DL (8.5-10.1); Osmolality,Calculated 273.7 MOS/KG (273-304); Potassium 4.4 MMOL/L (3.5-5.1)
[2017-07-10] MEDS: DEXT 5% NACL 0.45% KCL 20 MEQ 20 MEQ/1,000 ML BAG IV SCH ×3 (05:47→22:05)
[2017-07-10 05:55] LABS: Band Neutrophils 1 % (0-10); Giant Platelets Few; Hypochromasia 1+; Lymphocytes 12 % (20-55); Microcytosis Slight; Ovalocytes Slight; Platelet Estimate Decreased; Segmented Neutrophils 81 % (50-85); Total Cells Counted 100
[2017-07-10] MEDS: oxyCODONE/ACETAMINOPHEN 5-325 MG TABLET PO PRN ×2 (06:12→16:40)
[2017-07-10] MEDS: PANTOPRAZOLE 40 MG VIAL IV SCH (08:02)
[2017-07-10] MEDS: ZINC OXIDE PASTE 113 GM TUBE TOP SCH ×2 (14:23→22:06)
[2017-07-10] MEDS: ALUMINUM/MAGNES/SIMETH MAX STR 30 ML UDCUP PO PRN (17:45)
[2017-07-11] MEDS: MORPHINE 10 MG/1 ML VIAL IV PRN ×7 (01:34→22:19)
[2017-07-11 05:15] LABS: Basophils % 0.3 % (0.0-0.8); Eosinophils % 0.2 % (0.00-10.9); Hematocrit 26.5 VOL% (35.7-47.0); Hemoglobin 9.3 GM/DL (12.0-16.0); Immature Granulocytes % 2.4 %; Immature Granulocytes Absolute 0.14 #; Lymphocytes # 1.1 10*3/uL (1.4-4.0); Lymphocytes % 18.5 % (21.3-54.2); Mean Corpuscular HGB Conc 35.1 GM/DL (32-36); Mean Corpuscular Hemoglobin 30 PG (27-34); Mean Corpuscular Volume 86.3 FL (87-102); Mean Platelet Volume 11.6 FL (9.6-12.0); Monocytes # 0.5 10*3/uL (0.11-0.8); Monocytes % 8.1 % (1.7-12.7); Neutrophils # 4.2 10*3/uL (1.4-7.4); Neutrophils % 70.5 % (38.7-73.9); Platelet Count 70 T/CUMM (130-400); Red Blood Count 3.07 MC/CUMM (3.8-5.5); Red Cell Distribution Width 14.6 % (9.3-17.3); White Blood Count 5.9 T/CUMM (4-12)
[2017-07-11 05:37] LABS: Lymphocytes 9 % (20-55); Metamyelocytes 1 %; Nucleated Red Blood Cells 1 (0-5); Segmented Neutrophils 86 % (50-85); Total Cells Counted 100
[2017-07-11 05:38] LABS: Hypochromasia 1+; Microcytosis Slight; Platelet Estimate Decreased
[2017-07-11] MEDS: fentaNYL 75 MCG/HR PATCH TRANSDERM SCH (08:50)
[2017-07-11] MEDS: PANTOPRAZOLE 40 MG VIAL IV SCH (08:51)
[2017-07-11] MEDS: ZINC OXIDE PASTE 113 GM TUBE TOP SCH ×2 (08:53→22:14)
[2017-07-11] MEDS: DEXT 5% NACL 0.45% KCL 20 MEQ 20 MEQ/1,000 ML BAG IV SCH (08:54)
[2017-07-12 05:01] LABS: Basophils % 0.1 % (0.0-0.8); Hematocrit 24.5 VOL% (35.7-47.0); Hemoglobin 8.5 GM/DL (12.0-16.0); Immature Granulocytes % 1.5 %; Immature Granulocytes Absolute 0.11 #; Lymphocytes # 1.1 10*3/uL (1.4-4.0); Lymphocytes % 15.7 % (21.3-54.2); Mean Corpuscular HGB Conc 34.7 GM/DL (32-36); Mean Corpuscular Hemoglobin 29 PG (27-34); Mean Corpuscular Volume 84.8 FL (87-102); Mean Platelet Volume 11.2 FL (9.6-12.0); Monocytes # 0.7 10*3/uL (0.11-0.8); Neutrophils # 5.3 10*3/uL (1.4-7.4); Neutrophils % 73.7 % (38.7-73.9); Red Blood Count 2.89 MC/CUMM (3.8-5.5); Red Cell Distribution Width 14.6 % (9.3-17.3); White Blood Count 7.2 T/CUMM (4-12)
[2017-07-12 05:07] LABS: Platelet Count 69 T/CUMM (130-400)
[2017-07-12 05:38] LABS: Eosinophils 1 % (0-10); Lymphocytes 7 % (20-55); Platelet Estimate Decreased; Segmented Neutrophils 88 % (50-85); Total Cells Counted 100
[2017-07-12 05:39] LABS: Giant Platelets Few; Hypochromasia 1+; Microcytosis Slight
[2017-07-12] MEDS: oxyCODONE/ACETAMINOPHEN 5-325 MG TABLET PO PRN (06:45)
[2017-07-12] MEDS: DEXT 5% NACL 0.45% KCL 20 MEQ 20 MEQ/1,000 ML BAG IV SCH ×2 (06:49→15:00)
[2017-07-12] MEDS: ZINC OXIDE PASTE 113 GM TUBE TOP SCH ×2 (08:50→21:27)
[2017-07-12] MEDS: MORPHINE 10 MG/1 ML VIAL IV PRN ×4 (08:50→21:12)
[2017-07-12] MEDS: PANTOPRAZOLE 40 MG VIAL IV SCH (08:53)
[2017-07-12] MEDS: ONDANSETRON 4 MG/2 ML VIAL IV PRN (21:13)
[2017-07-13] MEDS: MORPHINE 10 MG/1 ML VIAL IV PRN ×6 (02:22→21:44)
[2017-07-13 05:49] LABS: Basophils % 0.2 % (0.0-0.8); Hematocrit 25.6 VOL% (35.7-47.0); Hemoglobin 8.5 GM/DL (12.0-16.0); Immature Granulocytes % 2.9 %; Immature Granulocytes Absolute 0.19 #; Lymphocytes # 1.2 10*3/uL (1.4-4.0); Lymphocytes % 17.4 % (21.3-54.2); Mean Corpuscular HGB Conc 33.2 GM/DL (32-36); Mean Corpuscular Hemoglobin 29 PG (27-34); Mean Corpuscular Volume 86.2 FL (87-102); Mean Platelet Volume 11.4 FL (9.6-12.0); Monocytes # 0.5 10*3/uL (0.11-0.8); Monocytes % 7.7 % (1.7-12.7); Neutrophils # 4.8 10*3/uL (1.4-7.4); Neutrophils % 71.8 % (38.7-73.9); Platelet Count 72 T/CUMM (130-400); Red Blood Count 2.97 MC/CUMM (3.8-5.5); Red Cell Distribution Width 14.6 % (9.3-17.3); White Blood Count 6.7 T/CUMM (4-12)
[2017-07-13 06:27] LABS: Atypical Lymphocytes Few; Lymphocytes 4 % (20-55); Segmented Neutrophils 90 % (50-85); Total Cells Counted 100
[2017-07-13 06:28] LABS: Platelet Estimate Decreased
[2017-07-13 06:29] LABS: Target Cells 1+
[2017-07-13 06:30] LABS: Burr Cells Slight; Hypochromasia 1+
[2017-07-13] MEDS: ONDANSETRON 4 MG/2 ML VIAL IV PRN (07:07)
[2017-07-13] MEDS: PANTOPRAZOLE 40 MG VIAL IV SCH (08:05)
[2017-07-13] MEDS: ZINC OXIDE PASTE 113 GM TUBE TOP SCH ×2 (09:19→22:13)
[2017-07-14] MEDS: MORPHINE 10 MG/1 ML VIAL IV PRN ×3 (03:56→11:02)
[2017-07-14 06:40] LABS: Basophils % 0.1 % (0.0-0.8); Hematocrit 23.7 VOL% (35.7-47.0); Hemoglobin 8.1 GM/DL (12.0-16.0); Immature Granulocytes % 2.1 %; Immature Granulocytes Absolute 0.16 #; Lymphocytes # 1.1 10*3/uL (1.4-4.0); Lymphocytes % 14.5 % (21.3-54.2); Mean Corpuscular HGB Conc 34.2 GM/DL (32-36); Mean Corpuscular Hemoglobin 30 PG (27-34); Mean Corpuscular Volume 86.5 FL (87-102); Monocytes # 0.8 10*3/uL (0.11-0.8); Monocytes % 9.7 % (1.7-12.7); Neutrophils # 5.7 10*3/uL (1.4-7.4); Neutrophils % 73.6 % (38.7-73.9); Platelet Count 65 T/CUMM (130-400); Red Blood Count 2.74 MC/CUMM (3.8-5.5); White Blood Count 7.7 T/CUMM (4-12)
[2017-07-14 07:05] LABS: Band Neutrophils 1 % (0-10); Giant Platelets Few; Hypochromasia 1+; Lymphocytes 2 % (20-55); Microcytosis Slight; Platelet Estimate Decreased; Segmented Neutrophils 92 % (50-85); Total Cells Counted 100
[2017-07-14] MEDS: fentaNYL 75 MCG/HR PATCH TRANSDERM SCH (08:50)
[2017-07-14] MEDS: PANTOPRAZOLE 40 MG VIAL IV SCH (08:50)
[2017-07-14] MEDS: ZINC OXIDE PASTE 113 GM TUBE TOP SCH (08:55)
[2017-07-14] MEDS ORDERED: HEPARIN LOCK FLUSH 500 UNIT/5 ML SYRINGE IV ONE (10:21)
[2017-07-14 11:06] VITALS: BP 148/82
== END 2017-07-14 13:41 | disposition hospice, home (50) | DRG 329 ==
LOC: EDUNIT# → N.EDINP 00:51 → N.ED 00:51 → N.4E 06:47
PROVIDERS: ADMIT Specialist; ATTEND Specialist